=== PATIENT | female | born 1980 | race African-American/Black ===

== ENCOUNTER 2017-01-03 15:28 | Inpatient (IN) | payer MEDICARE, OTHER ==
[2017-01-03] VITALS (13 sets, daily range): BP systolic 81–165; BP diastolic 47–72; PULSE 64–76; RESP 15–20; TEMP 97.4–98.3; O2SAT 97–100
[~2017-01-03] VITALS: Ht 165.1 cm; Wt 94.4 kg
--- NOTE | 2017-01-03 15:44 | PD ---
HPI Chief Complaint: Seizure Time Seen by Provider: 15:32 Travel History International Travel<30 days: No Contact w/Intl Traveler<30days: No History of Present Illness HPI History is limited as patient is postictal. This is a 36-year-old female who has a history of seizure disorder on Topirimate and Keppra who presents to the emergency department having been watching basketball in a hot gym when she had a seizure that was witnessed by her . She didn't hit her head at that time. Patient doesn't remember the seizure. She did not lose her bowels or bladder. With EMS they saw a partial repetitive motion in her left hand that appeared to be a seizure. They administered 2 mg of Ativan and her symptoms improved. Currently she feels sleepy and she says she has pain all over. She did not hit her head. She says she took her seizure medicines this morning. Evidently it was very hot in the gym where she was watching basketball and she was very sweaty with a picture up. PFSH Past Medical History Narrative Medical seizure disorder, history limited Social History Tobacco Use: No (history limited by post-ictal state) Allergies-Medications (Allergen,Severity, Reaction): Coded Allergies: Cephalosporins (Verified Allergy, Mild, Swelling, 01/03/17) Polychlorinated Biphenyl (Verified Allergy, Mild, rash, 01/03/17) Reported Meds & Prescriptions Reported Meds & Active Scripts Active Reported Topiramate 200 Mg Tab 200 Mg PO BID Keppra (Levetiracetam) 250 Mg Tab 250 Mg PO BID Review of Systems Except as stated in HPI: all other systems reviewed are Neg Physical Exam Narrative GENERAL: Sleepy but awakens to answer questions appropriately. SKIN: Focused skin assessment warm and dry. HEAD: Atraumatic. Normocephalic. EYES: Pupils equal and round. No injection or drainage. ENT: Moist mucous membranes NECK: Trachea midline. CARDIOVASCULAR: Regular rate and rhythm. No murmur appreciated. RESPIRATORY: Clear to auscultation. Breath sounds equal bilaterally. GASTROINTESTINAL: Abdomen soft, non-tender, nondistended. MUSCULOSKELETAL: No obvious deformities. NEUROLOGICAL: Awake and alert. No obvious cranial nerve deficits. No dysarthria or aphasia. Moving all extremities. PSYCHIATRIC: Appropriate mood and affect; insight and judgment normal. Data Data Last Documented VS Vital Signs Date Time Temp Pulse Resp B/P (MAP) Pulse Ox O2 Delivery O2 Flow Rate FiO2 01/03/17 17:58 98.3 70 17 93/60 (71) 100 Room Air Orders Orders Complete Blood Count With Diff (01/03/17 15:32) Blood Glucose (01/03/17 15:32) Ecg Monitoring (01/03/17 15:32) Iv Access Insert/Monitor (01/03/17 15:32) Oximetry (01/03/17 15:32) Comprehensive Metabolic Panel (01/03/17 15:32) Levetiracetam (01/03/17 15:32) Sodium Chlor 0.9% 1000 Ml Inj (Ns 1000 M (01/03/17 17:15) Lorazepam Inj (Ativan Inj) (01/03/17 17:19) Fosphenytoin Inj (Cerebyx Inj) (01/03/17 17:30) Lorazepam Inj (Ativan Inj) (01/03/17 17:30) Ct Brain W/O Iv Contrast(Rout) (01/03/17 ) Levetiracetam 1000 Mg Inj (Keppra 1000 M (01/03/17 18:30) Labs Laboratory Tests Test 01/03/17 15:40 White Blood Count 12.3 TH/MM3 Red Blood Count 3.40 MIL/MM3 Hemoglobin 10.7 GM/DL Hematocrit 32.2 % Mean Corpuscular Volume 94.7 FL Mean Corpuscular Hemoglobin 31.4 PG Mean Corpuscular Hemoglobin Concent 33.2 % Red Cell Distribution Width 12.6 % Platelet Count 257 TH/MM3 Mean Platelet Volume 9.3 FL Neutrophils (%) (Auto) 57.7 % Lymphocytes (%) (Auto) 35.9 % Monocytes (%) (Auto) 3.8 % Eosinophils (%) (Auto) 1.7 % Basophils (%) (Auto) 0.9 % Neutrophils # (Auto) 7.1 TH/MM3 Lymphocytes # (Auto) 4.4 TH/MM3 Monocytes # (Auto) 0.5 TH/MM3 Eosinophils # (Auto) 0.2 TH/MM3 Basophils # (Auto) 0.1 TH/MM3 CBC Comment DIFF FINAL Differential Comment Blood Urea Nitrogen 16 MG/DL Creatinine 1.10 MG/DL Random Glucose 99 MG/DL Total Protein 6.2 GM/DL Albumin 2.9 GM/DL Calcium Level 7.5 MG/DL Alkaline Phosphatase 56 U/L Aspartate Amino Transf (AST/SGOT) 11 U/L Alanine Aminotransferase (ALT/SGPT) 20 U/L Total Bilirubin 0.1 MG/DL Sodium Level 142 MEQ/L Potassium Level 3.3 MEQ/L Chloride Level 113 MEQ/L Carbon Dioxide Level 23.0 MEQ/L Anion Gap 6 MEQ/L Estimat Glomerular Filtration Rate 56 ML/MIN MDM Medical Decision Making Medical Screen Exam Complete: Yes Emergency Medical Condition: Yes Interpretation(s) Afebrile, no tachycardia, mild hypotension improved with fluids Mild leukocytosis Mild anemia Mild hypokalemia Last [address] 01/03/17 0000 Signed Impressions: Service Date/Time: Tuesday, January 03, 2017 18:30 - CONCLUSION: Normal examination for a patient of this age. Bernardo Ortega MD Differential Diagnosis Seizure, status epilepticus, medication noncompliance, heat stroke, dehydration Narrative Course This is a 36-year-old female who has a history of seizure disorder who presents to the emergency department having had 3 seizures, 2 in the field and then one here in the emergency department. She takes Keppra and Topamax at home. She is placed in a monitor and an IV was established. Labs are obtained which were reassuring. Here in the emergency department she had her third seizure. She was given 2 mg of Ativan. She was initially bolused with fosphenytoin but she didn't tolerate infusion and developed some burning. I spoke to Dr. Gordon and he recommended giving her a gram of Keppra. Following these interventions the patient was seizure free. She will be admitted for further management. Critical Care Narrative Aggregate critical care time was 35 minutes. Time to perform other separately billable procedures was not included in the critical care time. My time did not include minutes spent treating any other patients simultaneously or on activities that did not directly contribute to the patient's treatment. The services I provided to this patient were to treat and/or prevent clinically significant deterioration that could result in: Disability The patient was reevaluated several times and supplemental oxygen was provided when she was having an active seizure in the emergency department. I also consulted the neurologist on-call. I provided critical care services requiring my management, as noted below: Chart data review, documentation time, medication orders and management, vital sign assessments/reviewing monitor data, ordering and reviewing lab tests, ordering and interpreting/reviewing x-rays and diagnostic studies, care of the patient and discussion of the patient with the admitting physicians. Diagnosis Primary Impression: Seizures Admitting Information Admitting Physician Requests: Admit Tasha Bailey MD Jan 03, 2017 15:44
[2017-01-03 15:48] LABS: AUTOMATED NEUTROPHIL # 7.1 TH/MM3 (1.8-7.7); BASOPHIL # 0.1 TH/MM3 (0-0.2); BASOPHIL % 0.9 % (0.0-2.0); EOSINOPHIL # 0.2 TH/MM3 (0-0.4); EOSINOPHIL % 1.7 % (0.0-4.0); HEMATOCRIT 32.2 % (35.0-46.0); HEMO FLAGS DIFF FINAL; LYMPH % 35.9 % (9.0-44.0); LYMPHOCYTE # 4.4 TH/MM3 (1.0-4.8); MEAN CELL VOLUME 94.7 FL (80.0-100.0); MEAN CORPUSCULAR HEMOGLOBIN 31.4 PG (27.0-34.0); MEAN CORPUSCULAR HGB CONC 33.2 % (32.0-36.0); MONO % 3.8 % (0.0-8.0); NEUT % 57.7 % (16.0-70.0); PLATELET COUNT 257 TH/MM3 (150-450); RED CELL DISTRIBUTION WIDTH 12.6 % (11.6-17.2); WHITE BLOOD COUNT 12.3 TH/MM3 (4.0-11.0)
[2017-01-03] MEDS ORDERED: TOPI200T7 PO (15:51)
[2017-01-03] MEDS ORDERED: LEVE250 PO (15:51)
[2017-01-03 15:56] LABS: CHLORIDE 113 MEQ/L (98-107); POTASSIUM 3.3 MEQ/L (3.5-5.1); SODIUM (NA) 142 MEQ/L (136-145)
[2017-01-03 16:00] LABS: ANION GAP 6 MEQ/L (5-15); BLOOD UREA NITROGEN 16 MG/DL (7-18)
[2017-01-03 16:03] LABS: ALT (GPT) 20 U/L (10-53); AST (GOT) 11 U/L (15-37); GLOMERULAR FILTRATION RATE 56 ML/MIN (>89)
[2017-01-03 16:05] LABS: TOTAL BILIRUBIN ADULT 0.1 MG/DL (0.2-1.0)
[2017-01-03 16:06] LABS: ALKALINE PHOSPHATASE 56 U/L (45-117)
[2017-01-03] MEDS ORDERED: SODIUM CHLOR 0.9% 1000 ML INJ 1,000 ML IV ONE (17:15)
[2017-01-03] MEDS ORDERED: LORazepam 2 MG/ML VIAL ONE (17:19)
[2017-01-03] MEDS ORDERED: LORazepam 2 MG/ML VIAL IV PUSH ONE (17:30)
[2017-01-03] MEDS ORDERED: FOSPHENYTOIN INJ 1,000 MGPE in SODIUM CHLORIDE 0.9% INJ 50 ML IV ONE (17:30)
[2017-01-03] MEDS ORDERED: levETIRAcetam 1000 MG INJ 100 ML IV ONE (18:30)
--- NOTE | 2017-01-03 18:39 | RADRPT ---
EXAM DATE/TIME: 01/03/2017 18:30 [facility] COMPARISON: No previous studies available for comparison. INDICATIONS : Seizure. Altered mental status. RADIATION DOSE: 59.93 CTDIvol (mGy) MEDICAL HISTORY : Seizures. SURGICAL HISTORY : Hysterectomy. Appendectomy.Cholecystectomy.Nerve stimulator. Orthopedic surgery. ENCOUNTER: Initial ACUITY: 1 day PAIN SCALE: 0/10 LOCATION: cranial TECHNIQUE: Multiple contiguous axial images were obtained of the head. Using automated exposure control and adj ustment of the mA and/or kV according to patient size, radiation dose was kept as low as reasonably a chievable to obtain optimal diagnostic quality images. DICOM format image data is available electro nically for review and comparison. FINDINGS: CEREBRUM: The ventricles are normal for age. No evidence of midline shift, mass lesion, hemorrhage or acute in farction. No extra-axial fluid collections are seen. POSTERIOR FOSSA: The cerebellum and brainstem are intact. The 4th ventricle is midline. The cerebellopontine angle i s unremarkable. EXTRACRANIAL: The visualized portion of the orbits is intact. SKULL: The calvaria is intact. No evidence of skull fracture. CONCLUSION: Normal examination for a patient of this age. Bernardo Ortega MD on January 03, 2017 at 18:36 Board Certified Radiologist. This report was verified electronically.
[2017-01-03] MEDS ORDERED: LORazepam 2 MG/ML VIAL IV PUSH PRN (19:30)
[2017-01-03] MEDS ORDERED: MAGNESIUM HYDROXIDE SUSP 30 ML CUP PO PRN (19:30)
[2017-01-03] MEDS ORDERED: BISACODYL 10 MG SUPP RECTAL PRN (19:30)
[2017-01-03] MEDS ORDERED: ACETAMINOPHEN 325 MG TAB PO PRN (19:30)
[2017-01-03] MEDS ORDERED: SENNOSIDES 8.6 MG TAB PO PRN (19:30)
[2017-01-03] MEDS ORDERED: LACTULOSE SYRUP 20 GM/30 ML CUP PO PRN (19:30)
[2017-01-03] MEDS ORDERED: SODIUM CHLORIDE 0.9% FLUSH 10 ML FLUSH IV FLUSH PRN (19:30)
[2017-01-03] MEDS ORDERED: ACETAMINOPHEN/HYDROcodone 325 MG/10 MG TAB PO PRN (19:30)
[2017-01-03] MEDS ORDERED: ONDANSETRON HCL 4 MG/2 ML VIAL IVP PRN (19:30)
[2017-01-03] MEDS: SODIUM CHLOR 0.9% 1000 ML INJ 1,000 ML IV SCH (20:50)
[2017-01-03] MEDS ORDERED: EXCETAB30 (20:54)
[2017-01-03] MEDS ORDERED: TOPIRAMATE 200 MG TAB PO SCH (21:00)
[2017-01-03] MEDS: SODIUM CHLORIDE 0.9% FLUSH 10 ML FLUSH IV FLUSH SCH (22:50)
[2017-01-03] MEDS: DOCUSATE SODIUM 50 MG/SENNA 8.6 MG TAB PO SCH (22:51)
[2017-01-03] MEDS: TOPIRAMATE 100 MG TAB PO SCH (22:51)
[2017-01-04] VITALS (7 sets, daily range): BP systolic 94–114; BP diastolic 49–70; PULSE 63–74; RESP 16–18; TEMP 97–97.7; O2SAT 96–99
[2017-01-04] MEDS: SODIUM CHLOR 0.9% 1000 ML INJ 1,000 ML IV SCH ×3 (03:56→11:56)
[2017-01-04] MEDS ORDERED: ONDA1TAB16 PO (04:00)
[2017-01-04] MEDS ORDERED: CITA20TA4 PO (04:01)
[2017-01-04] MEDS ORDERED: QUET5TAB PO (04:03)
[2017-01-04] MEDS ORDERED: LEVE250T5 PO (04:06)
[2017-01-04] MEDS ORDERED: PANT40TA3 PO (04:07)
[2017-01-04] MEDS ORDERED: NAPR500T PO (04:09)
[2017-01-04] MEDS ORDERED: HYDR-3516 PO (04:10)
[2017-01-04 06:21] LABS: AUTOMATED NEUTROPHIL # 5.5 TH/MM3 (1.8-7.7); BASOPHIL # 0.1 TH/MM3 (0-0.2); BASOPHIL % 0.5 % (0.0-2.0); EOSINOPHIL # 0.2 TH/MM3 (0-0.4); EOSINOPHIL % 2.1 % (0.0-4.0); HEMATOCRIT 35.7 % (35.0-46.0); HEMO FLAGS DIFF FINAL; LYMPH % 44.2 % (9.0-44.0); MEAN CORPUSCULAR HEMOGLOBIN 30.9 PG (27.0-34.0); MEAN CORPUSCULAR HGB CONC 32.2 % (32.0-36.0); MONO % 4.4 % (0.0-8.0); NEUT % 48.8 % (16.0-70.0); PLATELET COUNT 255 TH/MM3 (150-450); RED BLOOD COUNT 3.72 MIL/MM3 (4.00-5.30); RED CELL DISTRIBUTION WIDTH 12.5 % (11.6-17.2); WHITE BLOOD COUNT 11.3 TH/MM3 (4.0-11.0)
[2017-01-04 06:33] LABS: CHLORIDE 116 MEQ/L (98-107); POTASSIUM 3.8 MEQ/L (3.5-5.1); SODIUM (NA) 143 MEQ/L (136-145)
[2017-01-04 06:39] LABS: ANION GAP 6 MEQ/L (5-15); BICARBONATE 21.3 MEQ/L (21.0-32.0); BLOOD UREA NITROGEN 13 MG/DL (7-18)
[2017-01-04 06:42] LABS: ALT (GPT) 18 U/L (10-53); AST (GOT) 11 U/L (15-37); GLOMERULAR FILTRATION RATE 86 ML/MIN (>89)
[2017-01-04 06:44] LABS: TOTAL BILIRUBIN ADULT 0.3 MG/DL (0.2-1.0)
[2017-01-04 06:45] LABS: ALKALINE PHOSPHATASE 62 U/L (45-117)
[2017-01-04] MEDS: SODIUM CHLORIDE 0.9% FLUSH 10 ML FLUSH IV FLUSH SCH ×2 (07:43→20:43)
[2017-01-04] MEDS ORDERED: SODIUM CHLOR 0.9% 1000 ML INJ 1,000 ML IV SCH (08:10)
[2017-01-04] MEDS: TOPIRAMATE 100 MG TAB PO SCH ×2 (08:46→20:42)
[2017-01-04] MEDS: DOCUSATE SODIUM 50 MG/SENNA 8.6 MG TAB PO SCH (08:46)
[2017-01-04] MEDS: levETIRAcetam 500 MG TAB PO SCH ×2 (08:46→20:42)
[2017-01-04 10:53] LABS: BLOOD, URINE NEG (NEG); GLUCOSE,URINE NEG (NEG); KETONE, URINE NEG (NEG); NITRITE,URINE NEG (NEG)
[2017-01-04 12:26] LABS: COMMENT (UR) CULT NOT INDICATED; CULTURE IF INDICATED CULT NOT INDICATED; METHOD OF COLLECTION CLEAN CATCH; URINE COLOR STRAW (YELLW/STRAW)
[2017-01-04 12:44] LABS: SQUAMOUS EPITHELIAL CELL URINE 0-3 /hpf (0-5)
--- NOTE | 2017-01-04 14:14 | HHI.HP ---
[facility] Service [facility] Primary Care Physician No Primary Care Physician Admission Diagnosis seizures Diagnoses: Chief Complaint: seizure Travel History International Travel<30 Days: No Contact w/Intl Traveler <30 Da: No Traveled to Known Affected Are: No History of Present Illness This patient is a 36-year-old female with long-standing history of seizures with outpatient follow-up by neurology in [place]. She has had increasing psychosocial stressors and has been working and studying as a full-time student. The patient came from [place] for vascular marking for her son and felt hot and a gymnasium and had a seizure. She did have a second seizure and a third seizure by the time she had gone to the emergency room. These resolved with Ativan and the patient had some postictal state with improvement. She was recommended for admission to the hospital. She reports she has lost quite a bit of weight over the last 2 months and has had increased psychosocial stressors with her job and her family life. She appears to have poor social support. Patient is tearful during the history. She also reports increased seizures over the last several weeks. Her seizure before yesterday was and then 2 weeks ago. There has not been no change her medications. In the emergency room she received IV Keppra. She already takes Keppra and Topamax. She notes no fevers and chills. She has not had any chest pain but reports having migraines relieved with Excedrin. She denies any narcotics. Her urine screen was positive for barbiturates however the patient denies. Patient has been seizure free since her arrival to the floor last night Review of Systems Constitutional: DENIES: Diaphoretic episodes, Fatigue, Fever, Weight gain, Weight loss, Chills, Dizziness, Change in appetite, Night Sweats Endocrine: DENIES: Abnorml menstrual pattern, Heat/cold intolerance, Polydipsia , Polyuria, Polyphagia Eyes: DENIES: Blurred vision, Diplopia, Eye inflammation, Eye pain, Vision loss , Photosensitivity, Double Vision Ears, nose, mouth, throat: DENIES: Tinnitus, Hearing loss, Vertigo, Nasal discharge, Oral lesions, Throat pain, Hoarseness, Ear Pain, Running Nose, Epistaxis, Sinus Pain, Toothache, Odynophagia Respiratory: DENIES: Apneas, Cough, Snoring, Wheezing, Hemoptysis, Sputum production, Shortness of breath Cardiovascular: DENIES: Chest pain, Palpitations, Syncope, Dyspnea on Exertion , PND, Lower Extremity Edema, Orthopnea, Claudication Gastrointestinal: DENIES: Abdominal pain, Black stools, Bloody stools, Constipation, Diarrhea, Nausea, Vomiting, Difficulty Swallowing, Anorexia Genitourinary: DENIES: Abnormal vaginal bleeding, Dysmenorrhea, Dyspareunia, Sexual dysfunction, Urinary frequency, Urinary incontinence, Urgency, Hematuria , Dysuria, Nocturia, Vaginal discharge Musculoskeletal: DENIES: Joint pain, Muscle aches, Stiffness, Joint Swelling, Back pain, Neck pain Integumentary: DENIES: Abnormal pigmentation, Pruritus, Rash, Nail changes, Breast masses, Breast skin changes, Nipple discharge Hematologic/lymphatic: DENIES: Bruising, Lymphadenopathy Immunologic/allergic: DENIES: Eczema, Urticaria Neurologic: DENIES: Abnormal gait, Headache, Localized weakness, Paresthesias, Seizures, Speech Problems, Tremor, Poor Balance Psychiatric: COMPLAINS OF: Anxiety, DENIES: Confusion, Mood changes, Depression , Hallucinations, Agitation, Suicidal Ideation, Homicidal Ideation, Delusions Except as stated in HPI: all other systems reviewed are Neg Past Family Social History Past Medical History seizures Past Surgical History Appendectomy, hysterectomy, cholecystectomy, tubal ligation Reported Medications reviewed in the EMR, nothing new Allergies: Coded Allergies: Cephalosporins (Verified Allergy, Mild, Swelling, 01/03/17) Polychlorinated Biphenyl (Verified Allergy, Mild, rash, 01/03/17) Active Ordered Medications Reviewed in the EMR Family History Mother has hypertension, diabetes Father has hypertension, diabetes, brother is on dialysis Social History Lives with a significant other and 4 children, works and attends school Physical Exam Vital Signs Vital Signs Date Time Temp Pulse Resp B/P (MAP) Pulse Ox O2 Delivery O2 Flow Rate FiO2 01/04/17 08:00 97.6 63 16 107/60 (76) 99 01/04/17 04:00 97.2 67 16 96/60 (72) 99 01/04/17 00:00 97.0 63 16 94/49 (64) 99 01/03/17 21:30 66 01/03/17 21:25 97.4 73 16 102/61 (75) 100 01/03/17 20:50 63 20 104/57 (73) 98 01/03/17 20:06 98.1 64 20 105/59 (74) 100 01/03/17 20:02 65 16 100 Room Air 01/03/17 19:27 64 20 93/60 (71) 99 Room Air 01/03/17 18:53 69 20 88/56 (67) 100 Room Air 01/03/17 17:58 98.3 70 17 93/60 (71) 100 Room Air 01/03/17 17:33 64 18 83/57 (66) 100 Room Air 01/03/17 16:58 66 15 90/60 (70) 100 Room Air 01/03/17 16:37 72 16 107/72 (84) 100 Room Air 01/03/17 15:58 76 18 81/47 (58) 97 Room Air 01/03/17 15:50 18 100 Room Air 01/03/17 15:30 98.1 70 18 86/56 (66) 100 Physical Exam GENERAL: This is a well-nourished, well-developed patient, tearful SKIN: No rashes, ecchymoses or lesions. Cool and dry. HEAD: Atraumatic. Normocephalic. No temporal or scalp tenderness. EYES: Pupils equal round and reactive. Extraocular motions intact. No scleral icterus. No injection or drainage. ENT: Nose without bleeding, purulent drainage or septal hematoma. Throat without erythema, tonsillar hypertrophy or exudate. Uvula midline. Airway patent. NECK: Trachea midline. No JVD or lymphadenopathy. Supple, nontender, no meningeal signs. CARDIOVASCULAR: Regular rate and rhythm without murmurs, gallops, or rubs. RESPIRATORY: Clear to auscultation. Breath sounds equal bilaterally. No wheezes , rales, or rhonchi. GASTROINTESTINAL: Abdomen soft, non-tender, nondistended. No hepato-splenomegaly , or palpable masses. No guarding. MUSCULOSKELETAL: Extremities without clubbing, cyanosis, or edema. No joint tenderness, effusion, or edema noted. No calf tenderness. Negative Homans sign bilaterally. NEUROLOGICAL: Awake and alert. Cranial nerves II through XII intact. Motor and sensory grossly within normal limits. Five out of 5 muscle strength in all muscle groups. Normal speech. Laboratory Laboratory Tests Test 01/03/17 15:40 01/04/17 05:37 01/04/17 10:30 01/04/17 10:40 White Blood Count 12.3 11.3 Red Blood Count 3.40 3.72 Hemoglobin 10.7 11.5 Hematocrit 32.2 35.7 Mean Corpuscular Volume 94.7 96.0 Mean Corpuscular Hemoglobin 31.4 30.9 Mean Corpuscular Hemoglobin Concent 33.2 32.2 Red Cell Distribution Width 12.6 12.5 Platelet Count 257 255 Mean Platelet Volume 9.3 9.7 Neutrophils (%) (Auto) 57.7 48.8 Lymphocytes (%) (Auto) 35.9 44.2 Monocytes (%) (Auto) 3.8 4.4 Eosinophils (%) (Auto) 1.7 2.1 Basophils (%) (Auto) 0.9 0.5 Neutrophils # (Auto) 7.1 5.5 Lymphocytes # (Auto) 4.4 5.0 Monocytes # (Auto) 0.5 0.5 Eosinophils # (Auto) 0.2 0.2 Basophils # (Auto) 0.1 0.1 CBC Comment DIFF FINAL DIFF FINAL Differential Comment Blood Urea Nitrogen 16 13 Creatinine 1.10 0.89 Random Glucose 99 79 Total Protein 6.2 6.1 Albumin 2.9 2.8 Calcium Level 7.5 7.7 Alkaline Phosphatase 56 62 Aspartate Amino Transf (AST/SGOT) 11 11 15 Alanine Aminotransferase (ALT/SGPT) 20 18 19 Total Bilirubin 0.1 0.3 Sodium Level 142 143 Potassium Level 3.3 3.8 Chloride Level 113 116 Carbon Dioxide Level 23.0 21.3 Anion Gap 6 6 Estimat Glomerular Filtration Rate 56 86 Erythrocyte Sedimentation Rate 9 Urine Collection Type CLEAN CATCH Urine Color STRAW Urine Turbidity CLEAR Urine pH 7.0 Urine Specific [place] 1.010 Urine Protein NEG Urine Glucose (UA) NEG Urine Ketones NEG Urine Occult Blood NEG Urine Nitrite NEG Urine Bilirubin NEG Urine Leukocyte Esterase NEG Urine Squamous Epithelial Cells 0-3 Microscopic Urinalysis Comment CULT NOT INDICATED Urine Opiates Screen NEG Urine Barbiturates Screen POS Urine Amphetamines Screen NEG Urine Benzodiazepines Screen NEG Urine Cocaine Screen NEG Urine Cannabinoids Screen NEG Thyroid Stimulating Hormone 3rd Gen 0.326 Result Diagram: 01/04/1737 01/04/1737 Imaging Last Impressions Head CT 01/03/17 0000 Signed Impressions: Service Date/Time: Tuesday, January 03, 2017 18:30 - CONCLUSION: Normal examination for a patient of this age. MD Mary Storm VTE Risk Assessment Mary VTE Risk Assessment: No/Low Risk (score <= 1) Eliazarrini Risk Assessment Model Point Value = 1 Point Value = 2 Point Value = 3 Point Value = 5 Age 41-60 Minor surgery BMI > 25 kg/m2 Swollen legs Varicose veins or History of unexplained or recurrent spontaneous Oral contraceptives or hormone replacement Sepsis (< 1 month) Serious lung disease, including pneumonia (< 1 month) Abnormal pulmonary function Acute myocardial infarction Congestive heart failure (< 1 month) History of inflammatory bowel disease Medical patient at bed rest Age 61-74 Arthroscopic surgery Major open surgery (> 45 min) Laparoscopic surgery (> 45 min) Malignancy Confined to bed (> 72 hours) Immobilizing plaster cast Central venous access Age >= 75 History of VTE Family history of VTE Factor V Leiden Prothrombin [id number] Lupus anticoagulant Anticardiolipin antibodies Elevated serum homocysteine Heparin-induced thrombocytopenia Other congenital or acquired thrombophilia Stroke (< 1 month) Elective arthroplasty Hip, pelvis, or leg fracture Acute spinal cord injury (< 1 month) Prophylaxis Regimen Total Risk Factor Score Risk Level Prophylaxis Regimen 0-1 Low Early ambulation 2 Moderate Order ONE of the following: *Sequential Compression Device (SCD) *Heparin 5000 units SQ BID 3-4 Higher Order ONE of the following medications: *Heparin 5000 units SQ TID *Enoxaparin/Lovenox 40 mg SQ daily (WT < 150 kg, CrCl > 30 mL/min) *Enoxaparin/Lovenox 30 mg SQ daily (WT < 150 kg, CrCl > 10-29 mL/min) *Enoxaparin/Lovenox 30 mg SQ BID (WT < 150 kg, CrCl > 30 mL/min) AND/OR *Sequential Compression Device (SCD) 5 or more Highest Order ONE of the following medications: *Heparin 5000 units SQ TID (Preferred with Epidurals) *Enoxaparin/Lovenox 40 mg SQ daily (WT < 150 kg, CrCl > 30 mL/min) *Enoxaparin/Lovenox 30 mg SQ daily (WT < 150 kg, CrCl > 10-29 mL/min) *Enoxaparin/Lovenox 30 mg SQ BID (WT < 150 kg, CrCl > 30 mL/min) AND *Sequential Compression Device (SCD) Assessment and Plan Problem List: (1) Seizures ICD Code: R56.9 - Unspecified convulsions Status: Acute Plan: Seizures have been more problematic over the last several weeks. Patient reports increasing amount of stress. This may be aggravated her seizure threshold to lower it. We'll continue with Keppra, Topamax twice a day Increasing psychosocial support would be helpful To call the patient's primary neurologist in [place] (William Younger ([facility]), ) ptn has not been seen in a year Neuro consult pending Rx: Assessment and Plan likely d/c home in am if remains sz free Code Status Full code Discussed Condition With patient, RN Physician Certification 2 Midnight Certification Type: Admission for Inpatient Services Order for Inpatient Services The services are ordered in accordance with Medicare regulations or non- Medicare payer requirements, as applicable. In the case of services not specified as inpatient-only, they are appropriately provided as inpatient services in accordance with the 2-midnight benchmark. Estimated LOS (days): 2 2 days is the estimated time the patient will need to remain in the hospital, assuming treatment plan goals are met and no additional complications. Post-Hospital Plan: Home Cristina Hong MD Jan 04, 2017 14:14
[2017-01-04 14:52] LABS: FREE T4 0.82 NG/DL (0.76-1.46)
--- NOTE | 2017-01-04 17:40 | MG ---
cc: MARY OLIVARES M.D. Lab No: Date: 01/04/2017 Age: Sex: F Race: DATE OF 1980, 36 years old EEG NUMBER [id number] Luna. ROOM [id number] With hyperventilation and photic stimulation. Fair hyperventilatory effort but was drowsy. CT scan is normal. Admitted with seizures while watching a basketball game in a hot gym witnessed by her . A 36-year-old woman with a history of epilepsy, headaches. MEDICATIONS 1. Keppra. 2. Topamax. DESCRIPTION OF RECORD A lot of muscle artifact. Some mild background slowing. Eye movement. Noted at epoch 15 the patient turned her head to the right. Head was shaking. This was during the initial 3 Hz photic stimulatory portion with a lot of artifact but no epileptic activity. Photic stimulation does elicit a posterior driving response. Hyperventilation did not attenuate the background. Some mild slowing seen however, in the theta frequency with some interspersed faster frequency theta waves. IMPRESSION Abnormal electroencephalogram due to some mild slowing with some faster frequency beta waves at times seen, may be medicine effect but no gross epileptic activity was seen during the event described. Clinical correlation. MD ORLIN Hancock/TERESA /4:05 PM /5:31 PM
[2017-01-04] MEDS: ACETAMINOPHEN/HYDROcodone 325 MG/5 MG TAB PO PRN (20:43)
[2017-01-04] MEDS ORDERED: QUEtiapine FUMARATE 25 MG TAB PO SCH (21:00)
[2017-01-05] VITALS: BP 101/55; PULSE 64; RESP 18; TEMP 97.1; O2SAT 99
[2017-01-05 08:00] VITALS: BP 128/78; PULSE 79; RESP 18; TEMP 97.8; O2SAT 99
[2017-01-05] MEDS ORDERED: PANTOPRAZOLE SOD 40 MG DELAYED RELEASE TAB PO SCH (09:00)
[2017-01-05] MEDS ORDERED: CITALOPRAM HYDROBROMIDE 20 MG TAB PO SCH (09:00)
--- NOTE | 2017-01-05 09:22 | MB ---
cc: TK FULTON M.D. DATE OF CONSULTATION 01/05/2017 HISTORY OF PRESENT ILLNESS A 36-year-old right-handed woman who is from [place]. She says she has been otherwise healthy but had seizures starting in 2000 after her child was born. She has had about 30 since that time. She was originally on Depakote which did not seem to work, was switched to Topamax 200 b.i.d., had a seizure on that so Keppra was added 250 b.i.d. She has had several seizures this year, three in June, one in September, two two weeks ago, three last and then one yesterday, evidently grand mal seizures. She feels tremoring and then she has a seizure, she tells me. No tongue biting or incontinence usually. She has some chronic headaches. She has had an MRI of her brain in the past which was negative. She has had all negative EEGs including ambulatory EEG, she tells me as far she knows. She sees a neurologist in [place]. She has not called her neurologist since March and I have asked her to call a neurologist whenever she has a seizure so she can be treated. She has spinal cord stimulator; she does not have an MRI here. She was watching a basketball game in a hot gym when she had a seizure witnessed by her , did not hit her head, did not remember the seizure, had a partial repetitive motion in the left hand, appeared to be a seizure, got 2 mg of Ativan. MEDICATIONS 1. Topamax 200 b.i.d. 2. Keppra 250 b.i.d. ALLERGIES ALLERGIC TO CEPHALOSPORINS. REVIEW OF SYSTEMS Denied hypertension, diabetes, hypercholesterolemia, anemia, [place], CABG, stent, angioplasty, A-fib, Coumadin, renal, hepatic or pulmonary disease, thyroid disease, lupus, ulcer, cancer or stroke. SOCIAL HISTORY She occasionally has a cigarette. Not a smoker or drinker. No drugs. Lives with her and children. FAMILY HISTORY Her has seizures. Otherwise, no one in her family has seizures. No stroke or cancer. She has not had any more spells since she has been here. MEDICATIONS HERE 1. She is on citalopram 20 a day. 2. Protonix. 3. Seroquel 50 at bedtime. 4. Keppra 1000 twice a day. 5. Topamax 200 b.i.d. PHYSICAL EXAMINATION VITAL SIGNS: Sinus rhythm. Afebrile, 74, 18, 94/54. Generally lower blood pressures. Lowest blood pressure even down to 81/47. NECK: There are no carotid bruits. Heart: Regular rhythm. I do not detect a murmur. NEUROLOGICAL EXAMINATION: Pupils are equal. Visual medrano are full. Disks are sharp. Extraocular intact without nystagmus. Face symmetric with normal station. Tongue was midline. There is no drift. She had normal strength in upper and lower extremities bilaterally. DTRs trace throughout. Toes downgoing bilaterally. Pinprick is intact throughout except she says she cannot feel very much, a little bit on her feet and legs. Vibratory sense was diminished on the legs bilaterally but intact otherwise. No ataxia on [id number]. No asterixis. She seems to be a little depressed. LABORATORY DATA CBC shows a white count of 11.3, otherwise normal. Sed rate is 9. RPR and JOSEFINA are pending. Urine drug screen positive for barbiturates only. UA negative. Basic metabolic profile essentially normal. LFTs normal. Albumin is low at 2.8. T4 normal. B12 normal. IMAGING STUDIES Cannot have an MRI. CAT scan of the brain was normal. EEG Some mild slowing, some medication effect, otherwise negative. IMPRESSION She tends to run a low blood pressure. I wonder how many spells could be from some syncope. She evidently never had a positive EEG. Pseudoseizures could be considered but considering her history what we will do is increase her Keppra to 1000 b.i.d., continue on her Topamax and she is to call her neurologist. She could be discharged home tonight. She occasionally drives. I told her in the [place] of [place] not to drive for 6 months after her last seizure and she does understand this and agrees. She also should not take a bath or swim alone. We will check a standing blood pressure here and she will be cleared for discharge. MD MAYE Rodriguez/JAJA /8:42 PM /9:01 AM
[2017-01-05] MEDS: TOPIRAMATE 100 MG TAB PO SCH (09:34)
[2017-01-05] MEDS: levETIRAcetam 500 MG TAB PO SCH (09:34)
[2017-01-05] MEDS: ACETAMINOPHEN/HYDROcodone 325 MG/5 MG TAB PO PRN (09:35)
[2017-01-05] MEDS: SODIUM CHLORIDE 0.9% FLUSH 10 ML FLUSH IV FLUSH SCH (09:35)
[2017-01-05 10:35] VITALS: RESP 18
[2017-01-05] MEDS ORDERED: LEVE500 PO (10:48)
--- NOTE | 2017-01-05 10:50 | HHI.DCPOC ---
Discharge Care Plan Diagnosis: (1) Seizures Goals to Promote Your Health * To prevent worsening of your condition and complications * To maintain your health at the optimal level Directions to Meet Your Goals Take your medications as prescribed Follow your dietary instruction Follow activity as directed Keep your appointments as scheduled Take your immunizations and boosters as scheduled If your symptoms worsen call your PCP, if no PCP go to Urgent Care Center or Emergency Room Smoking is Dangerous to Your Health. Avoid second hand smoke Call the 24-hour hour crisis hotline for domestic abuse at John Wright DO Jan 05, 2017 10:50
--- NOTE | 2017-01-05 11:00 | HHI.PR ---
Subjective Remarks The patient said that her ears were hurting her. She says that has been going on for the past week. She says she has not had any further seizure activity. She was okay with going home. She had no acute complaints. She has been ambulating well. Objective Vitals Vital Signs Date Time Temp Pulse Resp B/P (MAP) Pulse Ox O2 Delivery O2 Flow Rate FiO2 01/05/17 08:00 97.8 79 18 128/78 (95) 99 01/05/17 00:00 97.1 64 18 101/55 (70) 99 01/04/17 20:58 64 98/58 (71) 101/66 (78) 114/68 (83) 01/04/17 20:00 97.4 74 18 94/54 (67) 99 01/04/17 16:00 97.5 71 18 111/68 (82) 96 01/04/17 12:00 97.7 68 17 110/70 (83) 98 I/O 01/04/17 01/04/17 01/04/17 01/05/17 01/05/17 01/05/17 07:00 15:00 23:00 07:00 15:00 23:00 Intake Total 1487 ml 300 ml 400 ml Output Total 1300 ml 700 ml Balance 1487 ml -1300 ml -400 ml 400 ml Intake Oral 180 ml 400 ml IV Total 1307 ml 300 ml Output Urine Total 1300 ml 700 ml # Voids 1 2 # Bowel Movements 0 Result Diagram: 01/04/17 0537 01/04/17 0537 Imaging Last Impressions Head CT 01/03/17 0000 Signed Impressions: Service Date/Time: Tuesday, January 03, 2017 18:30 - CONCLUSION: Normal examination for a patient of this age. Bernardo Ortega MD Objective Remarks GENERAL: This is a well-nourished, well-developed patient in [facility]. SKIN: No rashes, ecchymoses or lesions. Cool and dry. HEAD: Atraumatic. Normocephalic. No temporal or scalp tenderness. EYES: Pupils equal round and reactive. Extraocular motions intact. No scleral icterus. No injection or drainage. ENT: Nose without bleeding, purulent drainage or septal hematoma. Throat without erythema, tonsillar hypertrophy or exudate. Uvula midline. Airway patent. Ear canals clear without erythema or drainage. NECK: Trachea midline. No JVD or lymphadenopathy. Supple, nontender, no meningeal signs. CARDIOVASCULAR: Regular rate and rhythm without murmurs, gallops, or rubs. RESPIRATORY: Clear to auscultation. Breath sounds equal bilaterally. No wheezes , rales, or rhonchi. GASTROINTESTINAL: Abdomen soft, non-tender, nondistended. No hepato-splenomegaly , or palpable masses. No guarding. MUSCULOSKELETAL: Extremities without clubbing, cyanosis, or edema. No joint tenderness, effusion, or edema noted. No calf tenderness. Negative Homans sign bilaterally. NEUROLOGICAL: Awake and alert. Cranial nerves II through XII intact. Motor and sensory grossly within normal limits. Five out of 5 muscle strength in all muscle groups. Normal speech. Medications and IVs Current Medications Medications (Trade) Dose Ordered Sig/Beatriz Route Start Time Stop Time Status Last Admin (Keppra) 1,000 mg Q12HR PO 01/04/17 09:00 01/05/17 09:34 (Ativan Inj) 1 mg Q5M PRN IV PUSH 01/03/17 19:30 (NS Flush) 2 ml UNSCH PRN IV FLUSH 01/03/17 19:30 01/04/17 03:56 (NS Flush) 2 ml BID IV FLUSH 01/03/17 21:00 01/05/17 09:35 (Zofran Inj) 4 mg Q6H PRN IVP 01/03/17 19:30 (Tylenol) 650 mg Q6H PRN PO 01/03/17 19:30 ([place] 5-325 Mg) 1 tab Q4H PRN PO 01/03/17 19:30 01/05/17 09:35 ([place] 10-325 Mg) 1 tab Q4H PRN PO 01/03/17 19:30 (Milk Of Magnesia Liq) 30 ml Q12H PRN PO 01/03/17 19:30 (Topamax) 200 mg BID PO 01/03/17 22:30 01/05/17 09:34 (CeleXA) 20 mg DAILY PO 01/05/17 09:00 01/05/17 09:35 (Protonix) 40 mg DAILY PO 01/05/17 09:00 01/05/17 09:34 (SEROquel) 50 mg HS PO 01/04/17 21:00 01/04/17 20:42 A/P Problem List: (1) Seizures ICD Code: R56.9 - Unspecified convulsions Status: Acute Assessment and Plan Seizures Have been more problematic over the last several weeks. Patient reports increasing amounts of stress. This may be aggravating her seizure threshold. Neurology consult appreciated. CT head unremarkable. EEG without gross epileptiform activity. - We'll continue with Keppra, increased by neurology to 1000 mg BID. - continue Topamax twice a day. - Increasing psychosocial support encouraged. - recommend to follow up with the patient's primary neurologist in [place] ( William Younger ([facility]) [phone]). - pt has been educated on activities to avoid. Ear pain Exam with otoscope unremarkable. Possibly viral or s/t sinus disease or allergies. - supportive care as needed. PPx: SCDs Discharge Planning D/c home John Wright DO Jan 05, 2017 11:00
== END 2017-01-05 13:17 | disposition home or self-care (01) | DRG 101 ==
LOC: PHED 15:28 → PHEDA 19:34 → PH3B 21:02
PROVIDERS: ADMIT Hospitalist; ATTEND Hospitalist
DX: G40.409 Other generalized epilepsy and epileptic syndromes, not intractable, without status epilepticus (principal); G43.909 Migraine, unspecified, not intractable, without status migrainosus
CPT/HCPCS: 70450; 80053; 80177; 80307; 81001; 82607; 83921; 84425; 84439; 84443; 84450; 84460; 85025; 85652; 86038; 86592; 95819; 96365; 96375; J1953; J2060; J7030; Q2009